=== PATIENT | male | born 1975 | race African-American/Black ===

== ENCOUNTER 2017-08-25 05:18 | Inpatient (IN) | payer OTHER ==
[~2017-08-25] VITALS: Ht 190.5 cm; Wt 107.0 kg
[2017-08-25] VITALS (11 sets, daily range): BP systolic 108–139; BP diastolic 60–80
[~2017-08-25 05:18] MED LIST: NKM
[2017-08-25] MEDS ORDERED: Zemuron 50mg/5ml Inj IV ONE (06:11)
[2017-08-25] MEDS ORDERED: Sodium Chloride 10ml vial INJ ONE (06:22)
[2017-08-25] MEDS ORDERED: Lidocaine 1% Plain 30 ml INJ ONE ×2 (06:22→09:55)
[2017-08-25] MEDS ORDERED: Dexamethasone 4mg/ml vial ONE ×2 (06:22→08:00)
[2017-08-25] MEDS ORDERED: oxyCODONE HCL/Acetaminophen 5/325mg ORAL PRN (06:30)
[2017-08-25] MEDS ORDERED: Metoclopramide 10mg/2ml Inj IVP PRN (06:30)
[2017-08-25] MEDS ORDERED: Atropine Inj 1mg/10ml Syr IV PRN (06:30)
[2017-08-25] MEDS ORDERED: Ketorolac 30mg Inj IV PRN ×2 (06:30)
[2017-08-25] MEDS ORDERED: Labetalol 5mg/ml 20ml vial IV PRN (06:30)
[2017-08-25] MEDS ORDERED: Norco 5mg/325mg tab ORAL PRN (06:30)
[2017-08-25] MEDS ORDERED: LR 1000ml 1,000 ML IVLG SCH (06:30)
[2017-08-25] MEDS ORDERED: HYDROcodone/Acetamin 7.5/325 tab ORAL PRN (06:30)
[2017-08-25] MEDS ORDERED: DiphenhydrAMINE 50mg/ml Inj IVP PRN (06:30)
[2017-08-25] MEDS ORDERED: Midazolam 2mg/2ml Inj IVP PRN (06:30)
[2017-08-25] MEDS ORDERED: fentaNYL 100 mcg/2 mL IV PRN (06:30)
[2017-08-25] MEDS ORDERED: LORazepam Inj 2mg/ml 1ml IV PRN (06:30)
[2017-08-25] MEDS ORDERED: Acetaminophen (Non formulary) 100 ML IV SCH (06:30)
--- NOTE | 2017-08-25 06:36 | Anethesia Preoperative Eval ---
Anesthesia Pre-op PMH/ROS General Date of Evaluation: August 25, 2017 Time of Evaluation: 08:11 Anesthesiologist: Best ASA Score: ASA 1 Mallampati Score Class I : Soft palate, uvula, fauces, pillars visible Class II: Soft palate, uvula, fauces visible Class III: Soft palate, base of uvula visible Class IV: Only hard plate visible Mallampati Classification: Class I Surgeon: Maximino Diagnosis: Neck Pain Surgical Procedure: ACDF C5-6, C6-7 Anesthesia History: none Family History: no anesthesia problems Allergies: Coded Allergies: No Known Allergies (Unverified , 08/23/17) Medications: see eMAR Past Medical History Neurologic/Psychiatric: Reports: other - War PTSD PSxH Narrative: R Knee SX, Lumbar Spine SX Anesthesia Pre-op Phys. Exam Physician Exam Last Vital Signs Date Time Temp Pulse Resp B/P (MAP) Pulse Ox O2 Delivery O2 Flow Rate FiO2 08/25/17 05:56 97.5 83 20 139/76 98 Room Air 97.5 Constitutional: NAD Neurologic: CN 2-12 intact Cardiovascular: RRR Respiratory: CTA Gastrointestinal: S/NT/ND Airway Exam Mallampati Score: Class I MO: full ROM: limited Teeth: intact Anesthesia Pre-op A/P Risk Assessment & Plan Assessment: ASA 1 Plan: GA, BIS, GlideScope Status Change Before Surgery: No Pre-Antibiotics Dru grams Ancef IV Given Within 1 Hr of Incision: Yes Time Given: 08:26 Karson Quiñones MD August 25, 2017 06:36
[2017-08-25] MEDS ORDERED: EPINEPHrine 1mg/1ml Amp ONE ×2 (06:44→07:20)
[2017-08-25] MEDS ORDERED: Thrombin 5000 units spray kit TOPIC ONE (06:45)
[2017-08-25] MEDS ORDERED: Bacitracin 50000 Units Vial ONE ×2 (06:45→07:21)
[2017-08-25] MEDS ORDERED: Gelfoam Absorbable 1gm powder pkt TOPIC ONE (06:45)
[2017-08-25] MEDS ORDERED: Bupivacaine 0.5% Inj 30 ml vial INJ ONE ×2 (06:45→07:20)
[2017-08-25] MEDS ORDERED: Thrombin 5000 units TOPIC ONE ×3 (06:45→07:20)
[2017-08-25] MEDS ORDERED: fentaNYL 100 mcg/2 mL IV ONE ×3 (06:46→09:02)
[2017-08-25] MEDS ORDERED: Succinylcholine 20mg/ml 10ml vial ONE (06:54)
--- NOTE | 2017-08-25 07:41 | Pre-Procedure Note/Attestation ---
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 I attest that, if there was a reasonable possibility of needing a blood transfusion, the patient (or the patient's legal client service representative) was given the [facility] standardized written summary, pursuant to the Derrick Silvia Blood Safety Act ([place] Health and Safety Code # 1645, as amended). I attest that I re-evaluated the patient just prior to the surgery and that there has been no change in the patient's H&P, except as documented below: Moise Stanton August 25, 2017 07:41
[2017-08-25] MEDS ORDERED: NS Irrig 1000ml ONE (08:00)
[2017-08-25] MEDS ORDERED: Propofol 1,000mg/ 100ml btl IV ONE (08:00)
[2017-08-25] MEDS ORDERED: Sterile Water Irrig 1000ml IRRIG ONE (08:00)
--- NOTE | 2017-08-25 08:42 | Immediate Post-Op Evaluation ---
Immediate Post-Op Evalulation Immediate Post-Op Evalulation Procedure: ACDF C5-6, C6-7 Date of Evaluation: August 25, 2017 Time of Evaluation: 11:35 IV Fluids: 1000 LR Blood Products: 0 Estimated Blood Loss: 25 Urinary Output: 0 Blood Pressure Systolic: 114 Blood Pressure Diastolic: 74 Pulse Rate: 91 Respiratory Rate: 16 O2 Sat by Pulse Oximetry: 97 Temperature (Fahrenheit): 97.4 Pain Score (1-10): 3 Nausea: No Vomiting: No Complications 0 Patient Status: awake, reacts, patent, extubated, none Hydration Status: adequate Dru Grams Ancef IV Given Within 1 Hr of Incision: Yes Time Given: 08:26 Karson Quiñones MD August 25, 2017 08:42
[2017-08-25] MEDS ORDERED: Labetalol 5mg/ml 20ml vial IV ONE (09:16)
[2017-08-25] MEDS ORDERED: Glycopyrrolate 0.2mg/ml 1ml Vial ONE (09:20)
[2017-08-25] MEDS ORDERED: Neostigmine 1mg/ml 10ml Inj ONE (09:20)
[2017-08-25] MEDS ORDERED: Naloxone 0.4mg/ml Inj IVP PRN (13:44)
[2017-08-25] MEDS ORDERED: Chloraseptic Spray 20mL Bottle ORAL PRN (13:45)
--- NOTE | 2017-08-25 13:59 | Diagnostic Imaging Report ---
Indication: Pain, intraoperative, right upper extremity and left upper extremity numbness Technique: Digital intraoperative imaging Comparison: none Findings: Initial image demonstrates surgical tool injector the level of the C6-7 disc. Subsequent images demonstrate fusion hardware bridging C5, C6, and C7. Impression: Intraoperative imaging, as described
[2017-08-25] MEDS ORDERED: Methocarbamol 500mg tab ORAL SCH (14:00)
[2017-08-25] MEDS: HYDROcodone/Acetamin 7.5/325 tab ORAL PRN ×2 (14:45→17:23)
[2017-08-25] MEDS ORDERED: ceFAZolin sod 1 GM in D5W 55 ML IV SCH (16:30)
[2017-08-25] MEDS: Methocarbamol 500mg tab ORAL SCH ×2 (17:11→21:08)
[2017-08-25] MEDS ORDERED: Docusate 100mg cap ORAL SCH (18:00)
[2017-08-25] MEDS ORDERED: NORCO 10-325 T1 EACH ORAL (22:14)
[2017-08-25] MEDS ORDERED: COLACE100 MG ORAL (22:17)
--- NOTE | 2017-08-25 22:17 | General Progress Note ---
Assessment/Plan Status Narrative s/p 2 level ACDF doiong well keep wound dry dc home adn norco 10/325 prn and colace to precvent constipation monitor alessia. Subjective Date patient seen: August 25, 2017 Time patient seen: 22:15 Allergies: Coded Allergies: No Known Allergies (Unverified , 08/23/17) Subjective zs/p 2 level ACDF has some neck pain no fevenrohcills no ches tpain Objective Last 24 Hour Vital Signs Date Time Temp Pulse Resp B/P (MAP) Pulse Ox O2 Delivery O2 Flow Rate FiO2 08/25/17 16:00 98.0 86 18 128/71 97 98.0 08/25/17 12:42 97.3 08/25/17 12:35 97.4 94 18 127/78 98 Nasal Cannula 3.0 97.4 08/25/17 12:25 97.3 88 18 109/74 98 Nasal Cannula 3.0 97.3 08/25/17 12:20 97.4 08/25/17 12:15 85 15 109/74 98 Nasal Cannula 3.0 08/25/17 12:00 86 17 108/72 98 Nasal Cannula 3.0 08/25/17 11:55 88 14 118/79 98 Nasal Cannula 3.0 08/25/17 11:45 92 17 120/80 97 Nasal Cannula 3.0 08/25/17 11:35 91 18 130/71 98 Simple Mask 8.0 08/25/17 11:29 95 16 111/68 98 Simple Mask 8.0 08/25/17 11:24 97.4 92 16 115/60 98 Simple Mask 8.0 97.4 08/25/17 11:24 207.3 91 16 97 08/25/17 05:56 97.5 83 20 139/76 98 Room Air 97.5 Height (Feet): 6 Height (Inches): 3.00 Weight (Pounds): 236 Neck: other - has scar non draining Cardiovascular: normal rate, regular rhythm, no JVD Respiratory/Chest: lungs clear Abdomen: soft SHERRI CARREON August 25, 2017 22:16
--- NOTE | 2017-08-26 | Operative Note - Dictated ---
DATE OF OPERATION: 08/25/2017 NEUROSURGERY OPERATIVE REPORT INDICATION FOR SURGERY: The patient is a pleasant 42-year-old gentleman who presented with signs and symptoms of cervical radiculopathy. He has attempted and failed conservative measures. Surgical and nonsurgical options were discussed. He requested surgical intervention. RISKS AND BENEFITS DISCUSSION: The patient was appraised of the objectives, benefits, risks and potential complications of the procedure including, but not limited to worsening of current status, possible need for further procedures, risk of infection, headache, CSF leak, possible spinal cord injury resulting in paralysis, neck hematoma, hoarseness of voice, injury to major blood vessels causing hemorrhage, stroke, loss of language function, coma and even . No assurance was given whether these symptoms will improve following the procedure. Informed consent was obtained and secured in the chart after the patient voiced understanding of these risks and decided to proceed with the operation. PREOPERATIVE DIAGNOSES: 1. C5 through C7 stenosis. 2. Cervical radiculopathy. POSTOPERATIVE DIAGNOSES: 1. C5 through C7 stenosis. 2. Cervical radiculopathy. PROCEDURE PERFORMED: Operation; 1. C5-C6 and C6-C7 anterior diskectomy, decompression and arthrodesis. 2. Application of intervertebral mechanical device at C5-C6 and C6-C7 using X-spine instrumentation. 3. Anterior titanium and instrumentation at C5, C6 and C7 using X-spine instrumentation. 4. Application of intravertebral pins from musculoskeletal traction at C5, C6 and C7. 5. Use of allograft. 6. Use of autograft. 7. Microscope. 8. Fluoroscope. 9. Neuromonitoring. SURGEON: Moise Stanton D.O. SENIOR BIOSTATISTICIAN: Dr. Hahn. ANESTHESIA: GETA. ESTIMATED BLOOD LOSS: Approximately 30 mL. FINDINGS: Stenosis secondary to herniated disc and osteophyte complex in the foramina causing stenosis on the right side. SPECIMEN SENT: Disk at C5-C6 and C6-C7 that was removed. COMPLICATIONS: None. TECHNIQUE: The patient was transferred to the operating room. He was then sedated and intubated by the Anesthesia team. He was transferred to the operating table in supine position. Preoperative antibiotics were given. Eyes were taped shut after ointment is applied to prevent corneal abrasion. was placed over the lower body to maintain control of core body temperature. Gallegos catheter was inserted. All pressure points were carefully padded. A roll was placed in between the shoulder blades to create mild neck extension. Neuromonitoring took place and needles appropriately positioned and baselines were obtained. C-arm was brought in and incision was out using imaging. The skin was prepped and draped in the standard surgical fashion. A time-out was taken. A transverse back incision was performed with a scalpel blade and dissection was carried down to the platysma muscle and taken down through the avascular plane of the prevertebral fascia. The carotid artery was palpated and confirmed to be lateral. The prevertebral fascia was then opened and longus colli muscle was visualized and dissected laterally. Self-retaining retractors were then placed underneath the longus colli muscles. The C5-C6 disk space was confirmed with fluoroscope. The microscope was brought in at this point. Diskectomy and ostectomy taken down of the posterior longitudinal ligament and foraminotomies were completed at the C6-C7 level first. Excellent decompression of nerve root and spinal cord was confirmed. The C6-C7 interspace was sized appropriately and a cage filled with allograft and autograft was inserted. The same process of diskectomy and decompression in addition to placement of interbody cage was performed at C5-C6 level. Afterwards, using titanium plates with screws into C5, C6, and C7 bodies were placed. Once completed, the area was copiously irrigated with antibiotic solution. Excellent fluoroscopy was performed confirming good positioning of all instrumentation. Excellent hemostasis maintained throughout the procedure. The microscope and retractors were then removed. Platysma layer and subcutaneous layers were then reapproximated. The skin was then closed with absorbable suture and skin glue was applied to the final layer. All needle count, sponge count, and instrument counts were correct at the end of the case x2. The neuromonitoring signals were stable throughout the entire case. The patient was then placed into the cervical collar and transferred to recovery in stable condition. The patient's family was updated after the surgery. The patient was examined after surgery and recovery and was able to move all extremities without difficulty. Moise Stanton MD DR: ASHLEY JOB#: [id number] CC:
--- NOTE | 2017-08-26 10:43 | Discharge Summary ---
Discharge Summary Discharge Summary Discharge Summary DATE OF ADMISSION: 08/25/2017 DATE OF DISCHARGE: 08/25/2017 CONSULTANTS: Dr. Odilon Rosenberg BRIEF HOSPITAL COURSE: Patient is a 42-year-old male, with signs and symptoms of cervical radiculopathy , who have attempted and failed conservative measures was admitted and underwent C5-C6 and C6-C7 anterior discectomy, decompression and arthrodesis. He tolerated procedure well and postoperatively was admitted for postop management. He was placed on SCDs for DVT prophylaxis. He was encouraged use of incentive spirometry. He underwent PT and OT evaluation and treatment. Diet was advanced. He was ambulating well with good pain control, he was eventually discharged home. FINAL DIAGNOSES: Cervical radiculopathy, status post C5-C6 and C6-C7 anterior cervical discectomy and fusion. (Referred to operative report) DISPOSITION: Patient was discharged home. DISCHARGE MEDICATIONS: Refer to Discharge Medication List. DISCHARGE INSTRUCTIONS: Follow up in a week. I have been assigned to dictate discharge summary on this account, and I was not involved in the patient's management. Selin Nolasco NP August 26, 2017 10:43
[2017-08-26 13:25] VITALS: BP 128/71
--- NOTE | 2017-08-26 13:25 | 48 Hour Post Anesthesia Eval ---
Post Anesthesia Evaluation Procedure: ACDF C5-6, C6-7 Date of Evaluation: August 25, 2017 Time of Evaluation: 16:00 Blood Pressure Systolic: 128 0: 71 Pulse Rate: 86 Respiratory Rate: 18 Temperature (Fahrenheit): 98 O2 Sat by Pulse Oximetry: 98 Airway: patent Nausea: No Vomiting: No Hydration Status: adequate Mental Status/LOC: patient returned to baseline Post-Anesthesia Complications: none Follow-up care needed: ready to discharge Adrienne Bardales M.D. August 26, 2017 13:25
== END 2017-08-25 22:50 | disposition home or self-care (01) | DRG 30 ==
LOC: SDSOVERFLO 05:18 → 3E 12:35
PROC: 0RG20A0 Fusion of 2 or more Cervical Vertebral Joints with Interbody Fusion Device, Anterior Approach, Anterior Column, Open Approach (ICD-10-PCS; principal; 2017-08-25 07:00)
PROC: 01N10ZZ Release Cervical Nerve, Open Approach (ICD-10-PCS; principal; 2017-08-25 07:00)
PROC: 0RB30ZZ Excision of Cervical Vertebral Disc, Open Approach (ICD-10-PCS; principal; 2017-08-25 07:00)
DX: M54.12 Radiculopathy, cervical region (principal); M54.10 Radiculopathy, site unspecified; M25.50 Pain in unspecified joint; F43.10 Post-traumatic stress disorder, unspecified
CPT/HCPCS: 36415; 72040; 76001; 86850; 86900; 86901; 87081; J2405; J2710